=== PATIENT | female | born 1950 ===

== ENCOUNTER 2017-05-28 09:38 | Outpatient (CLI) | payer OTHER | END 2017-05-28 17:00 | disposition home or self-care (01) | LOC: MAMO-SONO 09:38 | DX: M25.512 Pain in left shoulder (principal) ==

== ENCOUNTER 2018-08-03 11:02 | Outpatient (CLI) | payer OTHER | END 2018-08-03 11:51 | disposition home or self-care (01) | LOC: SONOGRAMA 11:02 | DX: M75.111 Incomplete rotator cuff tear or rupture of right shoulder, not specified as traumatic (principal) ==

== ENCOUNTER 2022-08-25 09:28 | Outpatient (CLI) | payer OTHER | END 2022-08-25 09:34 | disposition home or self-care (01) | LOC: RAD 09:28 | PROVIDERS: ATTEND Physical Medicine & Rehabilitation Hospice and Palliative Medicine | DX: M25.511 Pain in right shoulder (principal); M75.101 Unspecified rotator cuff tear or rupture of right shoulder, not specified as traumatic ==

== ENCOUNTER 2024-01-13 08:59 | Outpatient (CLI) | payer OTHER | END 2024-01-13 09:04 | disposition home or self-care (01) | LOC: SONOGRAMA 08:59 | PROVIDERS: ATTEND Physical Medicine & Rehabilitation Hospice and Palliative Medicine | DX: M25.511 Pain in right shoulder (principal); M75.31 Calcific tendinitis of right shoulder ==

== ENCOUNTER 2024-05-27 08:28 | Outpatient (CLI) | payer OTHER | END 2024-05-27 08:33 | disposition home or self-care (01) | LOC: RAD 08:28 | PROVIDERS: ATTEND Physical Medicine & Rehabilitation Hospice and Palliative Medicine | DX: M75.32 Calcific tendinitis of left shoulder (principal); M75.42 Impingement syndrome of left shoulder; M75.112 Incomplete rotator cuff tear or rupture of left shoulder, not specified as traumatic; M19.012 Primary osteoarthritis, left shoulder; M75.31 Calcific tendinitis of right shoulder; M75.111 Incomplete rotator cuff tear or rupture of right shoulder, not specified as traumatic; M75.41 Impingement syndrome of right shoulder; M19.011 Primary osteoarthritis, right shoulder ==

== ENCOUNTER 2024-10-27 13:56 | Outpatient (CLI) | payer OTHER | END 2024-10-27 14:03 | disposition home or self-care (01) | LOC: SONOGRAMA 13:56 | PROVIDERS: ATTEND Physical Medicine & Rehabilitation | DX: M75.31 Calcific tendinitis of right shoulder (principal); M75.111 Incomplete rotator cuff tear or rupture of right shoulder, not specified as traumatic; M75.51 Bursitis of right shoulder ==